=== PATIENT | male | born 1985 | race Caucasian/White ===

== ENCOUNTER 2018-08-19 13:13 | Emergency (ER) | payer OTHER ==
[~2018-08-19] VITALS: Ht 190.5 cm; Wt 99.8 kg
[2018-08-19] MEDS ORDERED: FAMOTIDINE 20 MG/2 ML VIAL IV STA (13:52)
[2018-08-19] MEDS ORDERED: PANTOPRAZOLE 40 MG 10ML VIAL IV STA (13:52)
[2018-08-19] MEDS ORDERED: SODIUM CHLORIDE 0.9% 1000ML 1,000 ML IV SCH (14:00)
[2018-08-19] MEDS ORDERED: PROMETHAZINE 25MG/ NS 50ML (IV) IV ONE (14:00)
[2018-08-19] MEDS ORDERED: ONDANSETRON HCL INJ 2 MG/ML VIAL IV STA (14:56)
--- OUTSIDE RECORDS SUMMARY | 2018-08-28 11:25 | XMS REPORT | Continuity of Care Document ---
Author Author [facility] Interface Address Unknown Phone Unavailable Problems Problem Status Onset Date Classification Date Reported Comments Source Body mass index 25-29 - overweight 04/14/2018 Diagnosis 04/14/2018 [facility] Urinary symptoms 04/14/2018 Diagnosis 04/14/2018 [facility] Body Mass Index 25-29 - Overweight 04/14/2018 Problem 04/14/2018 [facility] Urinary Symptoms 04/14/2018 Problem 04/14/2018 [facility] Urinary tract infectious disease 04/02/2018 Diagnosis 04/14/2018 [facility] Medications Medication Details Route Status Patient Instructions Ordering Provider Order Date Source Ciprofloxacin 500 MG Oral Tablet [Cipro] Cipro 500 mg tablet Take 1 tablet every 12 hours by oral route for 10 days. Active [facility] Allergies, Adverse Reactions, Alerts Substance Category Reaction Severity Reaction type Status Date Reported Comments Source Immunizations Immunization Date Given Site Status Last Updated Comments Source Results Order Name Results Value Reference Range Date Interpretation Comments Source Urinalysis macro (dipstick) panel - Urine COLOR : Yellow 04/14/2018 [facility] Urinalysis macro (dipstick) panel - Urine CLARITY : Clear 04/14/2018 [facility] Urinalysis macro (dipstick) panel - Urine LEUKOCYTES : Negative 04/14/2018 [facility] Urinalysis macro (dipstick) panel - Urine NITRITES : Negative 04/14/2018 [facility] Urinalysis macro (dipstick) panel - Urine UROBILINOGEN : Normal 04/14/2018 [facility] Urinalysis macro (dipstick) panel - Urine PROTEIN : Negative 04/14/2018 [facility] Urinalysis macro (dipstick) panel - Urine pH : 6.5 04/14/2018 [facility] Urinalysis macro (dipstick) panel - Urine BLOOD : Negative 04/14/2018 [facility] Urinalysis macro (dipstick) panel - Urine SPECIFIC GRAVITY : 1.020 04/14/2018 [facility] Urinalysis macro (dipstick) panel - Urine KETONES : Negative 04/14/2018 [facility] Urinalysis macro (dipstick) panel - Urine BILIRUBIN : Negative 04/14/2018 [facility] Urinalysis macro (dipstick) panel - Urine GLUCOSE Negative 04/14/2018 [facility] Urinalysis macro (dipstick) panel - Urine COLOR : Yellow 04/14/2018 [facility] Urinalysis macro (dipstick) panel - Urine CLARITY : Turbid 04/14/2018 [facility] Urinalysis macro (dipstick) panel - Urine LEUKOCYTES : Moderate 04/14/2018 [facility] Urinalysis macro (dipstick) panel - Urine NITRITES : Positive 04/14/2018 [facility] Urinalysis macro (dipstick) panel - Urine UROBILINOGEN : Normal 04/14/2018 [facility] Urinalysis macro (dipstick) panel - Urine PROTEIN : 100 04/14/2018 [facility] Urinalysis macro (dipstick) panel - Urine pH : 7.0 04/14/2018 [facility] Urinalysis macro (dipstick) panel - Urine BLOOD : Small 04/14/2018 [facility] Urinalysis macro (dipstick) panel - Urine SPECIFIC GRAVITY : 1.010 04/14/2018 [facility] Urinalysis macro (dipstick) panel - Urine KETONES : Negative 04/14/2018 [facility] Urinalysis macro (dipstick) panel - Urine BILIRUBIN : Negative 04/14/2018 [facility] Urinalysis macro (dipstick) panel - Urine GLUCOSE Negative 04/14/2018 [facility] Bacteria identified in Urine by Culture Bacteria identified in Urine by Culture Urine Culture, Routine 04/05/2018 abnormal [facility] Bacteria identified in Urine by Culture Other Antibiotic [Susceptibility] Antimicrobial Susceptibility 04/05/2018 [facility] Urinalysis macro (dipstick) panel - Urine COLOR : Yellow 04/02/2018 [facility] Urinalysis macro (dipstick) panel - Urine CLARITY : Turbid 04/02/2018 [facility] Urinalysis macro (dipstick) panel - Urine LEUKOCYTES : Moderate 04/02/2018 [facility] Urinalysis macro (dipstick) panel - Urine NITRITES : Positive 04/02/2018 [facility] Urinalysis macro (dipstick) panel - Urine UROBILINOGEN : Normal 04/02/2018 [facility] Urinalysis macro (dipstick) panel - Urine PROTEIN : 100 04/02/2018 [facility] Urinalysis macro (dipstick) panel - Urine pH : 7.0 04/02/2018 [facility] Urinalysis macro (dipstick) panel - Urine BLOOD : Small 04/02/2018 [facility] Urinalysis macro (dipstick) panel - Urine SPECIFIC GRAVITY : 1.010 04/02/2018 [facility] Urinalysis macro (dipstick) panel - Urine KETONES : Negative 04/02/2018 [facility] Urinalysis macro (dipstick) panel - Urine BILIRUBIN : Negative 04/02/2018 [facility] Urinalysis macro (dipstick) panel - Urine GLUCOSE Negative 04/02/2018 [facility] Vital Signs Vital Sign Value Date Comments Source Diastolic (mm Hg) 68 04/14/2018 [facility] Height 75 04/14/2018 [facility] Systolic (mm Hg) 118 04/14/2018 [facility] Weight 215 04/14/2018 [facility] Diastolic (mm Hg) 80 04/02/2018 [facility] Height 75 04/02/2018 [facility] Systolic (mm Hg) 130 04/02/2018 [facility] Weight 215 04/02/2018 [facility] Encounters Location Location Details Encounter Type Encounter Number Reason For Visit Attending Provider ADM Date DC Date Status Source [place] - [facility] - [id number] DasilvaC: [address] [place] [address], Ph. [id number] Sallye Scogin 04/02/2018 [facility] [place] [facility] - [id number] DasilvaC: [address] [place] [address], Ph. [id number] Sallye Scogin 04/02/2018 [facility] [place] [facility] - [id number] GodoyC: [address], [place], [place] [address], Ph. [id number] Jacqueline Gayel 04/14/2018 [facility] Procedures Procedure Code Date Perfomer Comments Source
--- OUTSIDE RECORDS SUMMARY | 2018-08-28 11:25 | XMS REPORT | Encounter Summary ---
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 Urinary symptoms urinalysis, dipstick culture, urine 2. Body mass index 25-29 - overweight body mass index: care instructions Discussion Note Pt is in NAD; Verbalizes understanding of all instructions with no questions at this time. Plan of Care Patient Instructions We will call you with your lab results. Follow up with pcp as needed. Reminders Provider Appointments None recorded. Lab Urinalysis, Dipstick 04/14/2018 [facility] Culture, Urine 04/14/2018 [facility] Referral None recorded. Procedures None recorded. Surgeries None recorded. Imaging None recorded. Medications Name Start Date Cipro 500 mg tablet Take 1 tablet every 12 hours by oral route for 10 days. Medications Administered None recorded. Vitals Height Weight BMI Blood Pressure 6 ft 3 in 215 lbs 26.9 kg/m2 118/68 mm[Hg] Lab Results Date Name Specimen Result Interpretation Description Value Range Status Address 04/02/2018 CT + NG DNA, PCR, Unspecified Specimen URINE Chlamydia Trachomatis, KIMBER negative negative Final [facility]: [id number] [facility] URINE Neisseria Gonorrhoeae, KIMBER negative negative Final [facility]: [id number] [facility] 04/02/2018 Culture, Urine URINE ABNORMAL Urine Culture, Routine final report Final [facility]: [address] URINE ABNORMAL Result 1 escherichia coli Final [facility]: [address] URINE Antimicrobial Susceptibility mihead Final [facility]: [address] Urinalysis, Dipstick Color : Yellow [facility]: [address] [facility] Clarity : Clear [facility]: [address] [facility] Leukocytes : Negative [facility]: [address] [facility] Nitrites : Negative [facility]: [address] [facility] Urobilinogen : Normal [facility]: [address] [facility] Protein : Negative [facility]: [address] [facility] Ph : 6.5 [facility]: [facility] Blood : Negative [facility]: [address] [place] [address] Specific [place] : 1.020 [facility]: [address] [facility] Ketones : Negative [facility]: [facility] Bilirubin : Negative [facility]: [address] [facility] Glucose Negative [facility]: [address] [facility] Urinalysis, Dipstick Color : Yellow [facility]: [address] [facility] Clarity : Turbid [facility]: [address] [facility] Leukocytes : Moderate [facility]: [address] [facility] Nitrites : Positive [facility]: [address] [facility] Urobilinogen : Normal [facility]: [address] [place] [address] Protein : 100 [facility]: [address] [place] [address] Ph : 7.0 [facility]: [address] [facility] Blood : Small [facility]: [address] [place] [address] Specific [place] : 1.010 [facility]: [address] [place] [address] Ketones : Negative [facility]: [address] [place] [address] Bilirubin : Negative [facility]: [address] [place] [address] Glucose Negative [facility]: [address] [place] [address] Allergies Code Code System Name Reaction Severity Status Onset NKDA Problems Name Status Onset Date Source Body Mass Index 25-29 - Overweight Active 04/14/2018 Urinary Symptoms Active 04/14/2018 Procedures None recorded. Vaccine List None recorded. Social History Smoking Status Never Smoker Past Encounters 04/14/2018 Urinary Symptoms; Body Mass Index 25-29 - Overweight LOGAN LaresC: [address] [place] [address], Ph. 04/02/2018 Urinary Tract Infectious Disease Johnathon Anthony PA-C: [address] [place] [address], Ph. History of Present Illness [id number]-Hernia Reported By: Patient HPI: Location: bladder. Quality: pressure. Severity: moderate. Duration: constant. Onset/Timing: worse, gradual. Context: no prior history of STDs, no known exposure to STD, sexually active, heterosexual; Pt was seen on 04-02-18 for similar symptoms and he was started on Cipro. Urine Cx revealed E. coli. Pt reports he finished his last dose of ABX yesterday. Modifying factors nothing gives relief. Associated Symptoms: no muscle aches, no fever/chills, no headache, no penile lesions/sores, no scrotal lesions/sores, no penile discharge, no flank pain, no jaundice, no blood in the urine, no pain during uri nation, urgency Review of Systems Basic Reported By: Patient Constitutional: Constitutional: no fever Eyes: Eyes: no eye complaints [id number]-Jazhk-Throat: Ears: no ear complaints. Nose: no nose/sinus problems. Mouth/Throat: no sore throat, no bleeding gums, no mouth complaints, no teeth problems Cardiovascular: Cardiovascular: no chest pain, no shortness of breath, no known heart murmur Respiratory: Respiratory: no cough, no wheezing, no shortness of breath Gastrointestinal: Gastrointestinal: no abdominal pain, no vomiting / diarrhea Genitourinary: Genitourinary: no urinary complaints, no discharge, urinary urgency Musculoskeletal: Musculoskeletal: no muscle aches, no muscle weakness, no arthralgias/joint pain, no back pain Skin: Skin: no abnormal / changing mole, no jaundice, no rashes Neurologic: Neurologic: no loss of consciousness, no weakness, no numbness, no seizures, no dizziness, no headaches Physical Exam Adult Basic, Adult Male Complete Reported By: Patient Constitutional: General Appearance: healthy-appearing, well-nourished, well-developed, overweight. Level of Distress: NAD. Ambulation: ambulating normally Psychiatric: Mental Status: active and alert. Orientation: to time, to place, to person Eyes: Lids and Conjunctivae: non-injected Neck: Neck: supple. Lymph Nodes: no cervical LAD Lungs: Respiratory effort: no dyspnea, no tachypnea, no use of accessory muscles, no intercostal retractions. Auscultation: breath sounds normal, good air movement Cardiovascular: Heart Auscultation: RRR, no murmurs Abdomen: Bowel Sounds: normal. Inspection and Palpation: soft, no tenderness, no guarding, no rebound tenderness, no masses, no CVA tenderness. Hernia: none palpable
--- OUTSIDE RECORDS SUMMARY | 2018-08-28 11:26 | XMS REPORT | Encounter Summary ---
Author Organization Unknown Address [address] [place] [address] Phone [phone] Reason for Visit Medical Complaint Instructions 1. Urinary tract infectious disease urinalysis, dipstick culture, urine CT + NG DNA, PCR, unspecified specimen Cipro 500 mg tablet Discussion Note Follow up with PCP if symptoms continue, ER if symptoms worsen Patient educational handouts: No information available. Plan of Care Reminders Provider Appointments None recorded. Lab Urinalysis, Dipstick 04/02/2018 [facility] Culture, Urine 04/02/[address] [facility] [address] + NG DNA, PCR, Unspecified Specimen 04/02/2018 [facility] Referral None recorded. Procedures None recorded. Surgeries None recorded. Imaging None recorded. Medications Name Start Date Cipro 500 mg tablet Take 1 tablet every 12 hours by oral route for 10 days. Medications Administered None recorded. Vitals Height Weight BMI Blood Pressure 6 ft 3 in 215 lbs 26.9 kg/m2 130/80 mm[Hg] Lab Results Date Name Specimen Result Interpretation Description Value Range Status Address Urinalysis, Dipstick Color : Yellow [facility]: [address] [place] [address] Clarity : Turbid [facility]: [address] [place] [address] Leukocytes : Moderate [facility]: [address] [place] [address] Nitrites : Positive [facility]: [address] [place] [address] Urobilinogen : Normal [facility]: [address] [place] [address] Protein : 100 [facility]: [address] [place] [address] Ph : 7.0 [facility]: [address] [place] [address] Blood : Small [facility]: [address] [place] [address] Specific [place] : 1.010 [facility]: [address] [place] [address] Ketones : Negative [facility]: [address] [place] [address] Bilirubin : Negative [facility]: [address] [place] [address] Glucose Negative [facility]: [address] [place] [address] Allergies Code Code System Name Reaction Severity Status Onset NKDA Problems None recorded. Procedures None recorded. Vaccine List None recorded. Social History Smoking Status Never Smoker Past Encounters 04/02/2018 [facility] Infectious Disease Johnathon Anthony PA-C: [address] [facility], [place] [address], Ph. History of Present Illness [id number]-Hernia Reported By: Patient HPI: Quality: burning. Severity: moderate. Duration: constant. Onset/Timing: worse, sudden. Context: no prior history of STDs, no known exposure to STD, sexually active, heterosexual; history if kidney infection. Associated Symptoms: no muscle aches, no fever/chills, no headache, no penile lesions/sores, no scrotal lesions/sores, no penile discharge, no flank pain, no jaundice, no blood in the urine, no pain during urination, burning sensation during urination, urgency Review of Systems:ROS as noted in the HPI Review of Systems Basic Reported By: Patient Physical Exam Adult Basic, Adult Male Complete Reported By: Patient Constitutional: General Appearance: healthy-appearing, well-nourished, well-developed. Level of Distress: NAD. Ambulation: ambulating normally Psychiatric: Mental Status: active and alert. Orientation: to time, to place, to person Lungs: Respiratory effort: no dyspnea, no tachypnea, no use of accessory muscles, no intercostal retractions. Auscultation: breath sounds normal, good air movement Cardiovascular: Heart Auscultation: RRR, no murmurs. Pulses including femoral / pedal: normal throughout Skin: Inspection and palpation: no rash Abdomen: Bowel Sounds: normal. Inspection and Palpation: soft, no tenderness, no guarding, no rebound tenderness, no masses, no CVA tenderness. Hernia: none palpable
== END 2018-08-19 16:09 | disposition home or self-care (01) ==
LOC: FSED 13:13
DX: R11.2 Nausea with vomiting, unspecified (principal); R19.7 Diarrhea, unspecified; K52.9 Noninfective gastroenteritis and colitis, unspecified; R05 Cough
CPT/HCPCS: 80053; 85025; 99284; J2405; J2550